=== PATIENT | male | born 1960 | race Caucasian/White ===

== ENCOUNTER 2017-09-08 09:17 | Emergency (ER) | payer OTHER ==
[~2017-09-08] VITALS: Ht 170.2 cm; Wt 84.0 kg
[2017-09-08 09:15] VITALS: O2SAT 98
[2017-09-08] MEDS ORDERED: ceFAZolin INJ 1,000 MG VIAL ONE (09:20)
[2017-09-08] MEDS ORDERED: DIPHTH/TETANUS/ACEL PERTUSSIS (BOOSTER) 0.5 ML VIAL/PFS IM ONE (09:20)
[2017-09-08] MEDS ORDERED: IOHEXOL 350 MG/ML 10 ML VIAL (for RAD DIAG) IVCONTRAST ONE (09:29)
[2017-09-08 09:38] LABS: AUTOMATED NEUTROPHIL # 7.5 TH/MM3 (1.8-7.7); BASOPHIL % 0.4 % (0.0-2.0); EOSINOPHIL # 0.2 TH/MM3 (0-0.4); EOSINOPHIL % 1.9 % (0.0-4.0); HEMOGLOBIN 14.7 GM/DL (13.0-17.0); LYMPH % 15.6 % (9.0-44.0); LYMPHOCYTE # 1.7 TH/MM3 (1.0-4.8); MEAN CELL VOLUME 99.7 FL (80.0-100.0); MEAN CORPUSCULAR HEMOGLOBIN 34.8 PG (27.0-34.0); MEAN CORPUSCULAR HGB CONC 34.9 % (32.0-36.0); MEAN PLATELET VOLUME 7.8 FL (7.0-11.0); MONO % 12.6 % (0.0-8.0); MONOCYTE # 1.4 TH/MM3 (0-0.9); NEUT % 69.5 % (16.0-70.0); PLATELET COUNT 243 TH/MM3 (150-450); RED BLOOD COUNT 4.22 MIL/MM3 (4.50-5.90); WHITE BLOOD COUNT 10.9 TH/MM3 (4.0-11.0)
[2017-09-08 09:47] LABS: PROTHROMBIN TIME - PATIENT 10.5 SEC (9.8-11.6)
--- NOTE | 2017-09-08 09:54 | RADRPT ---
EXAM DATE: 09/08/2017 9:44 AM EDT AGE/SEX: 89 years / Male INDICATIONS: Pierced in abdomen by screw. CLINICAL DATA: This is the patient's initial encounter. Patient reports that signs and symptoms have been present for 1 day and indicates a pain score of 3/10. MEDICAL/SURGICAL HISTORY: None. None. ORAL CONTRAST: No oral contrast ingested. RADIATION DOSE: 9.69 CTDI (mGy) COMPARISON: No prior [facility] exams available for comparison. TECHNIQUE: Multiple contiguous axial images were obtained through the abdomen and pelvis following b olus infusion of 92 ml Omnipaque 350 (iohexol) nonionic water-soluble contrast as a single exam dos e. No oral contrast ingested. Using automated exposure control and adjustment of the mA and/or kV ac cording to patient size, the radiation dose was kept as low as reasonably achievable to obtain optima l diagnostic quality images. FINDINGS: Lower chest: No acute abnormality is identified. Hepatobiliary: No focal liver lesion is identified. Hepatic vasculature demonstrates no abnormality. No calcified gallstones are present. Kidneys: No hydronephrosis, stone, or mass. Adrenal Glands: Within normal limits. Spleen: Within normal limits. Pancreas: Within normal limits. Vascular: The aorta is nonaneurysmal. There is mild to moderate atherosclerotic disease. Bowel/Mesentery: The stomach and small bowel demonstrate no abnormality. No acute colon abnormality i s seen. There is no free intraperitoneal air or fluid. Mild sigmoid diverticulosis is present. Abdominal Wall: There is minimal subcutaneous air and inflammation within the subcutaneous fat on the anterior abdominal wall just to the right of midline in the right upper quadrant. There are no featu res to suggest that the penetrating injury into the peritoneal cavity. Retroperitoneum: No lymphadenopathy. Bladder: No wall thickening or mass. Reproductive: Prostate gland appears absent. Penile prosthesis is present with reservoir in the right inferior pelvis impressing on the urinary bladder. Inguinal: No lymphadenopathy or hernia. Musculoskeletal: No acute osseous abnormality is identified. There are degenerative changes of the danny mbar spine but no lytic or blastic lesion is visualized. CONCLUSION: 1. There is subcutaneous inflammation and minimal subcutaneous air at the right upper quadrant anter ior abdominal wall. There are no findings to suggest that the penetrating injury entered into the per itoneal cavity. No free air or free fluid is seen within the abdomen or pelvis. 2. Moderate atherosclerotic disease. Electronically signed by: Emeterio Reid MD 09/08/2017 9:52 AM EDT
[2017-09-08 10:04] VITALS: O2SAT 96
[2017-09-08 10:05] VITALS: BP 144/74; PULSE 94; RESP 13; O2SAT 97
--- NOTE | 2017-09-08 10:09 | PD ---
HPI Chief Complaint: abdominal pain Time Seen by Provider: 09:22 Travel History International Travel<30 days: No Contact w/Intl Traveler<30days: No History of Present Illness HPI 57 y/o male presents as a level 2 trauma alert after a 2 x 4 board with about a 3 inch screw fell from a height and hit him in the abdomen and forearm. He has a large laceration to his abdomen and has a small laceration noted to his right forearm that was initially bleeding heavily. He notes pain over his forearm and abdomen and denies other complaints. He denies taking blood thinners. Pain is worse with movement. He denies other modifying factors. He states this happened at ground level and he did not fall and hit his head or blackout. FOR[facility]LY [facility] Past Medical History Narrative Medical Tachycardia, MS Past Surgical History Narrative Surgical Prostate surgery for prior prostate cancer Social History Tobacco Use: No Allergies-Medications (Allergen,Severity, Reaction): Coded Allergies: No Known Allergies (Verified Allergy, Unknown, 09/08/17) Reported Meds & Prescriptions Reported Meds & Active Scripts Active Reported Atorvastatin (Atorvastatin Calcium) 40 Mg Tab 40 Mg PO DAILY Gabapentin 300 Mg Cap 300 Mg PO TID Review of Systems Except as stated in HPI: all other systems reviewed are Neg Physical Exam Narrative General: 57y/o patient in no apparent distress Skin: trauma noted to epigastric area of abdomen just to the right of midline with approximately 1-1/2 cm laceration that has adipose tissue noted and cannot assess the full depth. Patient also has pinpoint laceration noted to right forearm without active bleeding with hematoma noted Eyes: Pupils equal ENT: no septal hematoma NECK: no pain with palpation in midline and with range of motion Cardiovascular: Regular rate and rhythm Respiratory: Normal respiratory effort noted, clear to auscultation bilaterally Abdomen: soft, tender in epigastric area, nondistended no rebound Back: No step-offs, midline spine nontender Extremities: Pain with palpation of right forearm over laceration without active bleeding, neurovascularly intact, no pain with rom of other joints Neuro: awake, alert, sensation and motor grossly intact Data Data Last Documented VS Vital Signs Date Time Temp Pulse Resp B/P (MAP) Pulse Ox O2 Delivery O2 Flow Rate FiO2 09/08/17 10:05 94 13 144/74 (97) 97 Room Air 09/08/17 09:15 2.00 Orders Orders Cefazolin Inj (Ancef Inj) (09/08/17 09:20) Qtoc-Yrs-Ioruzo (Booster) Inj (Boostrix (09/08/17 09:20) Ct Abd/Pel W Iv Contrast(Rout) (09/08/17 09:22) Forearm (2vws) (09/08/17 09:22) I-Stat Profile (09/08/17 09:25) Complete Blood Count With Diff (09/08/17:25) Prothrombin Time / Inr (Pt) (09/08/17:25) Act Partial Throm Time (Ptt) (09/08/17:) Type And Screen (09/08/17:) Iv Access Insert/Monitor (09/08/17:) Ecg Monitoring (09/08/17:) Oximetry (09/08/17:) Ed Discharge Order (09/08/17 11:57) Labs Laboratory Tests Test 09/08/17 09: White Blood Count 10.9 TH/MM3 Red Blood Count 4.22 MIL/MM3 Hemoglobin 14.7 GM/DL Bedside Hemoglobin 13.6 G/DL Hematocrit 42.0 % Bedside Hematocrit 40.0 % Mean Corpuscular Volume 99.7 FL Mean Corpuscular Hemoglobin 34.8 PG Mean Corpuscular Hemoglobin Concent 34.9 % Red Cell Distribution Width 13.0 % Platelet Count 243 TH/MM3 Mean Platelet Volume 7.8 FL Neutrophils (%) (Auto) 69.5 % Lymphocytes (%) (Auto) 15.6 % Monocytes (%) (Auto) 12.6 % Eosinophils (%) (Auto) 1.9 % Basophils (%) (Auto) 0.4 % Neutrophils # (Auto) 7.5 TH/MM3 Lymphocytes # (Auto) 1.7 TH/MM3 Monocytes # (Auto) 1.4 TH/MM3 Eosinophils # (Auto) 0.2 TH/MM3 Basophils # (Auto) 0.0 TH/MM3 CBC Comment DIFF FINAL Differential Comment Prothrombin Time 10.5 SEC Prothromb Time International Ratio 1.0 RATIO Activated Partial Thromboplast Time 24.5 SEC Bedside Sodium 138 MMOL/L Bedside Potassium 4.1 MMOL/L Bedside Chloride 101 MMOL/L Bedside Blood Urea Nitrogen 10 MG/DL Bedside Creatinine 1.0 MG/DL Bedside Glucose 135 MG/DL MDM Medical Decision Making Medical Screen Exam Complete: Yes Emergency Medical Condition: Yes Medical Record Reviewed: Yes (Past history confirmed) Interpretation(s) CBC & BMP Diagram 09/08/17 09:22 Last 24 hours Impressions Abdomen/Pelvis CT 09/08/17921 Signed Impressions: CONCLUSION: 1. There is subcutaneous inflammation and minimal subcutaneous air at the righ t upper quadrant anterior abdominal wall. There are no findings to suggest that the penetrating injury entered into the peritoneal cavity. No free air or free fluid is seen within the abdomen or pelvis. 2. Moderate atherosclerotic disease. Differential Diagnosis Intra-abdominal injury, laceration, bleed Narrative Course Patient arrived as a level 2 trauma alert. Vitals were stable at that time. Laceration of abdomen unable to tell if penetrates into abdomen. Antibiotics and tetanus ordered. Will assess with CT scan of abdomen and trauma surgeon updated. Right forearm wound with bleeding controlled. On arrival back to room after I went with patient to CT for further examination of right forearm wound shows large hematoma with small puncture wound that does not need suture. Dressing reapplied. Will await CT report. CT report does not show penetration into peritoneal cavity. Will repair laceration dr luciano came and saw patient and states can have laceration repaired and then go home. midlevel assisted with laceration repair. Patient denies any new complaints and states that they are feeling better. Patient happy with care, all questions answered. Patient knows that follow up is incumbent on them and to return to the emergency room immediately if new or worsening symptoms develop. Patient given strict return precautions, vitals reviewed and are normal, agrees to further workup as an outpatient. Diagnosis Primary Impression: Laceration of abdominal wall Qualified Codes: S31.119A - Laceration without foreign body of abdominal wall , unspecified quadrant without penetration into peritoneal cavity, initial encounter Additional Impression: Laceration of forearm Qualified Codes: S51.811A - Laceration without foreign body of right forearm, initial encounter Patient Instructions: General Instructions Additional Instructions: return as needed, follow with primary this week for recheck, tylenol as needed Med/Other Pt SpecificInfo: No Change to Meds Disposition: 01 DISCHARGE HOME Condition: Stable Miya Elliott MD September 08, 2017 10:09
[2017-09-08] MEDS ORDERED: GABA100C4 PO (10:18)
--- NOTE | 2017-09-08 10:22 | RADRPT ---
EXAM DATE: 09/08/2017 10:18 AM EDT AGE/SEX: 89 years / Male INDICATIONS: Trauma alert. Right forearm pain on anterior and posterior side after being hit by a 2X 4. CLINICAL DATA: This is the patient's initial encounter. Patient reports that signs and symptoms have been present for 1 day and indicates a pain score of 8/10. MEDICAL/SURGICAL HISTORY: Non-responsive. Non-responsive. COMPARISON: No prior [facility] exams available for comparison. FINDINGS: 2 views of the right forearm demonstrate no fracture or dislocation. Mineralization is normal. There is subcutaneous edema and mild soft tissue swelling in the mid forearm. No radiopaque foreign body is identified. CONCLUSION: Mild subcutaneous edema and soft tissue swelling in the mid forearm. No fracture is identified. Electronically signed by: Emeterio Reid MD 09/08/2017 10:20 AM EDT
[2017-09-08] MEDS ORDERED: ATOR40TA16 PO (10:53)
[2017-09-08] MEDS ORDERED: GABA300C5 PO (10:53)
--- NOTE | 2017-09-08 11:52 | PD ---
Physical Exam Time Seen by Provider: 11:51 Data Data Last Documented VS Vital Signs Date Time Temp Pulse Resp B/P (MAP) Pulse Ox O2 Delivery O2 Flow Rate FiO2 09/08/17 10:05 94 13 144/74 (97) 97 Room Air 09/08/17 09:15 2.00 Orders Orders Cefazolin Inj (Ancef Inj) (09/08/17 09:20) Sxsi-Eum-Qdsgjs (Booster) Inj (Boostrix (09/08/17 09:20) Ct Abd/Pel W Iv Contrast(Rout) (09/08/17 09:22) Forearm (2vws) (09/08/17 09:22) I-Stat Profile (09/08/17:25) Complete Blood Count With Diff (09/08/17:25) Prothrombin Time / Inr (Pt) (09/08/17 09:25) Act Partial Throm Time (Ptt) (09/08/17:25) Type And Screen (09/08/17:25) Iv Access Insert/Monitor (09/08/17:25) Ecg Monitoring (09/08/17 09:25) Oximetry (09/08/17 09:25) Labs Laboratory Tests Test 09/08/17 09:22 White Blood Count 10.9 TH/MM3 Red Blood Count 4.22 MIL/MM3 Hemoglobin 14.7 GM/DL Bedside Hemoglobin 13.6 G/DL Hematocrit 42.0 % Bedside Hematocrit 40.0 % Mean Corpuscular Volume 99.7 FL Mean Corpuscular Hemoglobin 34.8 PG Mean Corpuscular Hemoglobin Concent 34.9 % Red Cell Distribution Width 13.0 % Platelet Count 243 TH/MM3 Mean Platelet Volume 7.8 FL Neutrophils (%) (Auto) 69.5 % Lymphocytes (%) (Auto) 15.6 % Monocytes (%) (Auto) 12.6 % Eosinophils (%) (Auto) 1.9 % Basophils (%) (Auto) 0.4 % Neutrophils # (Auto) 7.5 TH/MM3 Lymphocytes # (Auto) 1.7 TH/MM3 Monocytes # (Auto) 1.4 TH/MM3 Eosinophils # (Auto) 0.2 TH/MM3 Basophils # (Auto) 0.0 TH/MM3 CBC Comment DIFF FINAL Differential Comment Prothrombin Time 10.5 SEC Prothromb Time International Ratio 1.0 RATIO Activated Partial Thromboplast Time 24.5 SEC Bedside Sodium 138 MMOL/L Bedside Potassium 4.1 MMOL/L Bedside Chloride 101 MMOL/L Bedside Blood Urea Nitrogen 10 MG/DL Bedside Creatinine 1.0 MG/DL Bedside Glucose 135 MG/DL [facility] Medical Record Reviewed: Yes Supervised Visit with JALEEL: No Procedures Procedure Narrative LACERATION LOCATION: abdomen LENGTH: 4.5 cm NUMBER OF STITCHES/DAE: 4 sutures REPAIR: The area of the laceration was prepped with Betadine and sterilely draped. The laceration was infiltrated with 1% lidocaine without epi. The wound was copiously irrigated and explored without evidence of foreign body, tendon injury or neurovascular injury. The wound was closed using 4-0 prolene. This was a single layer repair. A sterile dressing was applied. The patient was advised to keep the dressing clean and dry. Patient tolerated the procedure well. Condition: Stable Kaykay Dalton September 08, 2017 11:52
== END 2017-09-08 12:27 | disposition home or self-care (01) ==
LOC: NEPI 09:17 → EDBD 09:17 → NEPE 12:27
DX: S31.119A Laceration without foreign body of abdominal wall, unspecified quadrant without penetration into peritoneal cavity, initial encounter (principal); S51.811A Laceration without foreign body of right forearm, initial encounter; W20.8XXA Other cause of strike by thrown, projected or falling object, initial encounter; Z23 Encounter for immunization
CPT/HCPCS: 12002; 73090; 74177; 80048; 85025; 85610; 85730; 86850; 86900; 86901; 90471; 90715; 96374; 99285; 99291; J0690; Q9967; G0390